=== PATIENT | female | born 1950 | race Two or more races ===

== ENCOUNTER 2018-11-27 09:30 | Inpatient (IN) | payer OTHER ==
[~2018-11-27] VITALS: Ht 157.5 cm; Wt 113.4 kg
[2018-11-27] MEDS ORDERED: HYZAAR 50-12.51 EACH PO (12:17)
[2018-12-11] MEDS ORDERED: PERCOCET 5-3251 EACH PO (11:00)
[2018-12-11] MEDS ORDERED: DUI500 PO (11:00)
[2018-12-11] MEDS ORDERED: ELIQUIS2.5 MG PO (11:00)
== END 2018-12-11 12:49 | DRG 470 ==
LOC: O/R 12-09 06:43 → SURG 12-09 06:43
PROVIDERS: ADMIT Orthopaedic Surgery
PROC: 0MNN0ZZ Release Right Knee Bursa and Ligament, Open Approach (ICD-10-PCS; 2018-12-09)
PROC: 0SRC0J9 Replacement of Right Knee Joint with Synthetic Substitute, Cemented, Open Approach (ICD-10-PCS; principal; 2018-12-09 10:15)
DX: M17.11 Unilateral primary osteoarthritis, right knee (principal); M80.00XA Age-related osteoporosis with current pathological fracture, unspecified site, initial encounter for fracture; D62 Acute posthemorrhagic anemia; E66.01 Morbid (severe) obesity due to excess calories; I10 Essential (primary) hypertension